=== PATIENT | male | born 2000 | race Caucasian/White ===

== ENCOUNTER 2020-06-15 19:11 | Emergency (ER) | payer OTHER ==
[2020-06-15 19:17] VITALS: BP 113/74; PULSE 98; RESP 18; TEMP 98.4
--- NOTE | 2020-06-15 19:52 | XR ---
EXAMINATION TYPE: XR chest 2V DATE OF EXAM: 06/15/2020 COMPARISON: 02/09/2018 HISTORY: Short of breath TECHNIQUE: FINDINGS: Heart and mediastinum are normal. Lungs are clear. Diaphragm is normal. Bony thorax appears normal. IMPRESSION: Normal chest. No change.
--- NOTE | 2020-06-15 20:00 | ED ---
Back Pain HPI - General Chief Complaint: Back Pain/Injury Stated Complaint: Back injury Time Seen by Provider: 06/15/20 19:19 Source: patient - History of Present Illness Initial Comments: 19-year-old male presenting today for chief complaint of back pain. Patient states he noticed that his back seemed more prominent in certain areas of the upper spine. Patient states has been painful. 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 He doesn't follow strict injury IV drug use weakness sensation deficits or radiation of the pain. Denies any loss of bowel or bladder control. Patient states he took a picture sent his dad but it looked swollen and told him to come to the ER. She states that he became very anxious about this and was experiencing dyspnea. He denies chest pain. patient has no additional complai nts. Upon arrival patient appears well nontoxic in no acute distress. - Related Data Home Medications Medication Instructions Recorded Confirmed No Known Home Medications 02/09/18 02/09/18 Allergies Allergy/AdvReac Type Severity Reaction Status Date / Time No Known Allergies Allergy Verified 06/15/20 19:17 Review of Systems ROS Statement: Those systems with pertinent positive or pertinent negative responses have been documented in the HPI. ROS Other: All systems not noted in ROS Statement are negative. Past Medical History Past Medical History: Seizure Disorder History of Any Multi-Drug Resistant Organisms: None Reported Past Surgical History: No Surgical Hx Reported Past Psychological History: No Psychological Hx Reported Smoking Status: Never smoker Past Alcohol Use History: None Reported Past Drug Use History: None Reported General Exam - General Exam Comments Initial Comments: General: The patient is awake and alert, in no distress, and does not appear acutely ill. Eye: Pupils are equal, round and reactive to light, extra-ocular movements are intact. No nystagmus. There is normal conjunctiva bilaterally. No signs of icterus. Ears, nose, mouth and throat: There are moist mucous membranes and no oral lesions. Neck: The neck is supple, there is no tenderness or JVD. Prominent C7. no pain Cardiovascular: There is a regular rate and rhythm. No murmur, rub or gallop is appreciated. Respiratory: Lungs are clear to auscultation, respirations are non-labored, breath sounds are equal. No wheezes, stridor, rales, or rhonchi. Musculoskeletal: Paraspinal tenderness of the upper thoracic spine. No lower tenderness. Patient hasno swelling, no redness. and minimal midlines pain. Whittaker bend foreward testing reveals very slight upper thoracic curvature to the right. Normal ROM, no tenderness. Strength 5/5. Sensation intact. Radial pulses equal bilaterally 2+. Neurological: A&O x 3. CN II-XII intact, There are no obvious motor or sensory deficits. Coordination appears grossly intact. Speech is normal. Skin: Skin is warm and dry and no rashes or lesions are noted. Psychiatric: Cooperative, appropriate mood & affect, normal judgment. Course Vital Signs 06/15/20 19:14 Temperature 98.4 F Pulse Rate 98 Respiratory 18 Rate Blood Pressure 113/74 O2 Sat by Pulse 100 Oximetry Medical Decision Making - Medical Decision Making Normal inspection no abnormal swelling, or changes of the spine appreciated. Patient did have photo in red lighting that appears like there was prominence however this is felt to be anatomical at c7 as well as positional/lighting. Given thoracic in nature, patient states he became anxious and had dyspnea that subsided with his tall, thin stature i obtained a chest XR to ensure no spontaneous pnuemothorax. patient CXR WNL. he appears well nontoxic and will be discharged with PCP f/u. Patient is agreeable to dsicharge. patient is accompanied by grandmother. case discussed with Dr. Maxwell who is agreeable to care plan and discharge. Disposition Clinical Impression: Back pain Disposition: HOME SELF-CARE Condition: Good Instructions (If sedation given, give patient instructions): Back Pain (ED) Additional Instructions: Please use medication as discussed. Please follow-up with family doctor in the next 2 days. Please return to emergency room if the symptoms increase or worsen or for any other concerns. Is patient prescribed a controlled substance at d/c from ED?: No Referrals: None,Stated [Primary Care Provider] - 1-2 days Time of Disposition: 20:00
== END 2020-06-15 20:11 | disposition home or self-care (01) ==
LOC: EC 19:11
DX: M54.9 Dorsalgia, unspecified (principal)
CPT/HCPCS: 71046; 99283

== ENCOUNTER 2020-11-07 10:07 | Emergency (ER) | payer OTHER ==
[2020-11-07] MEDS ORDERED: SODIUM CHLORIDE 0.9% 1,000 ML IV STA (11:06)
--- NOTE | 2020-11-07 11:11 | ED ---
General Adult HPI - General Chief complaint: Dizziness Stated complaint: Dizziness Time Seen by Provider: 11/07/20 10:32 Source: patient Mode of arrival: wheelchair Limitations: no limitations - History of Present Illness Initial comments: 20 year-old male patient presents to the emergency department for evaluation of dizziness and blurred vision. Patient states symptoms started around 0800 this morning while at work. 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 States that it has been really hot in the factory for the last several days. States he has been sweating a lot. States he drinks "a lot" of water. States he did have mild headache earlier today but it has resolved. He denies any head injury. Denies chest pain or shortness of breath. States he has had these same symptoms numerous times in the past, has never been evaluated. Patient denies any recent rash, cough, shortness of breath, chest pain, abdominal pain, nausea, vomiting, diarrhea, constipation, back pain, numbness, tingling, hematuria, dysuria, urinary urgency, urinary frequency, or any other complaints. - Related Data Home Medications Medication Instructions Recorded Confirmed No Known Home Medications 02/09/18 11/07/20 Allergies Allergy/AdvReac Type Severity Reaction Status Date / Time No Known Allergies Allergy Verified 11/07/20 11:13 Review of Systems ROS Statement: Those systems with pertinent positive or pertinent negative responses have been documented in the HPI. ROS Other: All systems not noted in ROS Statement are negative. Past Medical History Past Medical History: Seizure Disorder History of Any Multi-Drug Resistant Organisms: None Reported Past Surgical History: No Surgical Hx Reported Past Psychological History: No Psychological Hx Reported Smoking Status: Never smoker Past Alcohol Use History: None Reported Past Drug Use History: None Reported General Exam Limitations: no limitations General appearance: alert, in no apparent distress, other (This is a well- developed, well-nourished adult male patient in no acute distress. Vital signs upon presentation are temperature 97.8F, pulse 68, respirations 18, blood pressure 121/81, pulse ox 100% on room air.) Eye exam: Present: normal appearance, PERRL, EOMI. Absent: scleral icterus, conjunctival injection, periorbital swelling ENT exam: Present: normal exam, normal oropharynx, mucous membranes moist Respiratory exam: Present: normal lung sounds bilaterally. Absent: respiratory distress, wheezes, rales, rhonchi, stridor Cardiovascular Exam: Present: regular rate, normal rhythm, normal heart sounds. Absent: systolic murmur, diastolic murmur, rubs, gallop, clicks GI/Abdominal exam: Present: soft, normal bowel sounds. Absent: distended, tenderness, guarding, rebound, rigid Neurological exam: Present: alert, oriented X3, CN II-XII intact Expanded Speech: Present: fluid speech Cranial nerves: EOM's Intact: Normal, Nystagmus: Normal Motor strength exam: RUE: 5, LUE: 5, RLE: 5, LLE: 5 Psychiatric exam: Present: normal affect, normal mood Skin exam: Present: warm, dry, intact, normal color. Absent: rash Course Vital Signs 11/07/20 11/07/20 11/07/20 10:18 12:58 13:09 Temperature 97.8 F 98.0 F Pulse Rate 68 67 68 Respiratory 18 16 16 Rate Blood Pressure 121/81 128/80 121/87 O2 Sat by Pulse 100 100 99 Oximetry EKG Findings - EKG Comments: EKG Findings:: EKG obtained at 1026 shows normal sinus rhythm with an incomplete right bundle branch block. Ventricular rate is 69, ID interval 194, QRS duration 94, QTC 420, QTC 450. No evidence of ST elevation or depression. Medical Decision Making - Medical Decision Making 20-year-old male patient presents to the emergency department today for evaluation of dizziness and blurred vision. Physical examination is unremarkable. He is neurologically intact with no focal deficits. EKG shows incomplete right bundle branch block. Vital signs are within normal range. Labs reviewed and were unremarkable. I did discuss findings and results with him. He is instructed to increase fluids and to rest. He is instructed to follow-up with his primary care physician for recheck in 1-2 days. He is instructed to discuss possible heart monitoring since he has been having frequent dizzy episodes. Return parameters were discussed in detail. He verbalizes understanding and agrees with this plan. Case discussed with my attending Dr. Calles. - Lab Data Result diagrams: 11/07/20 11:25 11/07/20 11:25 Lab Results 11/07/20 11/07/20 11/07/20 Range/Units 11:25 11:25 11:25 WBC 4.3 (4.0-11.0) k/uL RBC 4.89 (4.30-5.90) m/uL Hgb 15.4 (13.0-17.5) gm/dL Hct 43.0 (39.0-53.0) % MCV 88.0 (80.0-100.0) fL MCH 31.5 (25.0-35.0) pg MCHC 35.7 (31.0-37.0) g/dL RDW 12.9 (11.5-15.5) % Plt Count 179 (150-450) k/uL MPV 7.4 Neutrophils % 54 % Lymphocytes % 34 % Monocytes % 7 % Eosinophils % 2 % Basophils % 1 % Neutrophils # 2.3 (1.3-7.7) k/uL Lymphocytes # 1.4 (1.0-4.8) k/uL Monocytes # 0.3 (0-1.0) k/uL Eosinophils # 0.1 (0-0.7) k/uL Basophils # 0.0 (0-0.2) k/uL Sodium 139 (137-145) mmol/L Potassium 4.4 (3.5-5.1) mmol/L Chloride 102 (98-107) mmol/L Carbon Dioxide 27 (22-30) mmol/L Anion Gap 10 mmol/L BUN 16 (9-20) mg/dL Creatinine 0.87 (0.66-1.25) mg/dL Est GFR (CKD-EPI)AfAm >90 (>60 ml/min/1.73 sqM) Est GFR (CKD-EPI)NonAf >90 (>60 ml/min/1.73 sqM) Glucose 77 (74-99) mg/dL Plasma Lactic Acid Kirt 0.7 (0.7-2.0) mmol/L Calcium 10.0 (8.4-10.2) mg/dL Total Bilirubin 1.6 H (0.2-1.3) mg/dL AST 35 (17-59) U/L ALT 18 (4-49) U/L Alkaline Phosphatase 76 (38-126) U/L Troponin I (0.000-0.034) ng/mL Total Protein 7.4 (6.3-8.2) g/dL Albumin 4.8 (3.5-5.0) g/dL Urine Color Urine Appearance (Clear) Urine pH (5.0-8.0) Ur Specific [place] (1.001-1.035) Urine Protein (Negative) Urine Glucose (UA) (Negative) Urine Ketones (Negative) Urine Blood (Negative) Urine Nitrite (Negative) Urine Bilirubin (Negative) Urine Urobilinogen (<2.0) mg/dL Ur Leukocyte Esterase (Negative) 11/07/20 11/07/20 Range/Units 11:25 11:30 WBC (4.0-11.0) k/uL RBC (4.30-5.90) m/uL Hgb (13.0-17.5) gm/dL Hct (39.0-53.0) % MCV (80.0-100.0) fL MCH (25.0-35.0) pg MCHC (31.0-37.0) g/dL RDW (11.5-15.5) % Plt Count (150-450) k/uL MPV Neutrophils % % Lymphocytes % % Monocytes % % Eosinophils % % Basophils % % Neutrophils # (1.3-7.7) k/uL Lymphocytes # (1.0-4.8) k/uL Monocytes # (0-1.0) k/uL Eosinophils # (0-0.7) k/uL Basophils # (0-0.2) k/uL Sodium (137-145) mmol/L Potassium (3.5-5.1) mmol/L Chloride (98-107) mmol/L Carbon Dioxide (22-30) mmol/L Anion Gap mmol/L BUN (9-20) mg/dL Creatinine (0.66-1.25) mg/dL Est GFR (CKD-EPI)AfAm (>60 ml/min/1.73 sqM) Est GFR (CKD-EPI)NonAf (>60 ml/min/1.73 sqM) Glucose (74-99) mg/dL Plasma Lactic Acid Kirt (0.7-2.0) mmol/L Calcium (8.4-10.2) mg/dL Total Bilirubin (0.2-1.3) mg/dL AST (17-59) U/L ALT (4-49) U/L Alkaline Phosphatase (38-126) U/L Troponin I <0.012 (0.000-0.034) ng/mL Total Protein (6.3-8.2) g/dL Albumin (3.5-5.0) g/dL Urine Color Yellow Urine Appearance Clear (Clear) Urine pH 6.0 (5.0-8.0) Ur Specific [place] 1.015 (1.001-1.035) Urine Protein Negative (Negative) Urine Glucose (UA) Negative (Negative) Urine Ketones Negative (Negative) Urine Blood Negative (Negative) Urine Nitrite Negative (Negative) Urine Bilirubin Negative (Negative) Urine Urobilinogen <2.0 (<2.0) mg/dL Ur Leukocyte Esterase Negative (Negative) Disposition Clinical Impression: Dizziness, Blurred vision Disposition: HOME SELF-CARE Condition: Good Instructions (If sedation given, give patient instructions): Blurred Vision (ED), Dizziness (ED) Additional Instructions: Increase fluids. Rest. Follow up with your primary care physician for recheck in 1-2 days. Discuss possible heart monitoring. Return for any new, worsening, or concerning symptoms. Is patient prescribed a controlled substance at d/c from ED?: No Referrals: None,Stated [Primary Care Provider] - 1-2 days Time of Disposition: 12:41
[2020-11-07 11:40] LABS: Appearance,Urine Clear (Clear); Bilirubin,Urine Negative (Negative); Blood,Urine Negative (Negative); Color,Urine Yellow; Glucose,Urine (UA) Negative (Negative); Ketones,Urine Negative (Negative); Leukocyte Esterase,Urine Negative (Negative); Nitrite,Urine Negative (Negative); Protein,Urine Negative (Negative); Specific Gravity,Urine 1.015 (1.001-1.035); Urobilinogen,Urine <2.0 mg/dL (<2.0)
[2020-11-07 11:46] LABS: ALT 18 U/L (4-49); AST 35 U/L (17-59); African American GFR (CKD) >90 (>60 ml/min/1.73 sqM); Albumin 4.8 g/dL (3.5-5.0); Alkaline Phosphatase 76 U/L (38-126); Anion Gap 10 mmol/L; Blood Urea Nitrogen 16 mg/dL (9-20); Carbon Dioxide 27 mmol/L (22-30); Chloride 102 mmol/L (98-107); Glucose 77 mg/dL (74-99); Non-African American GFR(CKD) >90 (>60 ml/min/1.73 sqM); Potassium 4.4 mmol/L (3.5-5.1); Sodium 139 mmol/L (137-145); Total Bilirubin 1.6 mg/dL (0.2-1.3); Total Protein 7.4 g/dL (6.3-8.2)
[2020-11-07 11:51] LABS: Basophils % (A) 1 %; Eosinophils # (A) 0.1 k/uL (0-0.7); Eosinophils % (A) 2 %; HGB 15.4 gm/dL (13.0-17.5); Lymphocytes # (A) 1.4 k/uL (1.0-4.8); Lymphocytes % (A) 34 %; MCH 31.5 pg (25.0-35.0); MCHC 35.7 g/dL (31.0-37.0); Mean Platelet Volume 7.4; Monocytes # (A) 0.3 k/uL (0-1.0); Monocytes % (A) 7 %; Neutrophils # (A) 2.3 k/uL (1.3-7.7); Neutrophils % (A) 54 %; Platelet Count 179 k/uL (150-450); RBC 4.89 m/uL (4.30-5.90); RDW 12.9 % (11.5-15.5); WBC 4.3 k/uL (4.0-11.0)
[2020-11-07 12:59] VITALS: RESP 16
[2020-11-07 13:09] VITALS: BP 121/87; PULSE 68; TEMP 98
== END 2020-11-07 13:09 | disposition home or self-care (01) ==
LOC: EC 10:07
DX: R42 Dizziness and giddiness (principal); H53.8 Other visual disturbances
CPT/HCPCS: 36415; 80053; 81003; 83605; 84484; 85025; 93005; 96360; 96361; 99284

== ENCOUNTER 2020-11-13 22:21 | Emergency (ER) | payer OTHER ==
[2020-11-13] MEDS ORDERED: ACETAMINOPHEN TAB 500 MG TAB PO STA (23:32)
[2020-11-14] MEDS ORDERED: IBUPROFEN 600 MG TAB PO STA (00:24)
[2020-11-14] MEDS ORDERED: guaiFENesin-DM 600/30MG 1 EACH TAB.ER.12H PO STA (00:24)
--- NOTE | 2020-11-14 00:36 | XR ---
EXAMINATION TYPE: XR chest 1V DATE OF EXAM: 11/14/2020 COMPARISON: 06/15/2020 HISTORY: Cough. Short of breath. TECHNIQUE: Single view FINDINGS: Heart and mediastinum are normal. Lungs are clear. Diaphragm is normal. Bony thorax is inta ct. IMPRESSION: Normal chest. No change.
[2020-11-14 00:53] VITALS: BP 107/63; PULSE 80; RESP 16; TEMP 98.2
--- NOTE | 2020-11-14 01:16 | ED ---
URI HPI - General Chief Complaint: Upper Respiratory Infection Stated Complaint: cough, fever Time Seen by Provider: 11/14/20 00:06 Source: patient, family Mode of arrival: wheelchair Limitations: no limitations - History of Present Illness Initial Comments: 20-year-old male patient presents to the emergency department today for evaluation of cough, congestion, sore throat, body aches, fever, chills. Patient states symptoms started about 24 hours ago. Denies taking any medication for his symptoms. Does admit to smoking cigarettes. Has not had COV ID-19. Mother is sick with similar symptoms. Patient denies any recent rash, shortness of breath, chest pain, abdominal pain, nausea, vomiting, diarrhea, constipation, back pain, numbness, tingling, dizziness, weakness, hematuria, dysuria, urinary urgency, urinary frequency, headache, visual changes, or any other complaints. - Related Data Previous Rx's Medication Instructions Recorded Ibuprofen [Motrin] 600 mg PO Q8HR PRN #30 tab 11/14/20 guaiFENesin-DM 600/30MG [Mucinex 2 each PO Q12HR PRN #20 tab.er.12h 11/14/20 Dm] Allergies Allergy/AdvReac Type Severity Reaction Status Date / Time No Known Allergies Allergy Verified 11/13/20 23:14 Review of Systems ROS Statement: Those systems with pertinent positive or pertinent negative responses have been documented in the HPI. ROS Other: All systems not noted in ROS Statement are negative. Past Medical History Past Medical History: Seizure Disorder History of Any Multi-Drug Resistant Organisms: None Reported Past Surgical History: No Surgical Hx Reported Past Psychological History: No Psychological Hx Reported Smoking Status: Never smoker Past Alcohol Use History: None Reported Past Drug Use History: None Reported General Exam Limitations: no limitations General appearance: alert, in no apparent distress, other (This is a well- developed, well-nourished adult male patient in no acute distress. Vital signs upon presentation are temperature 100.7F, pulse 83, respirations 18, blood pressure 132/81, pulse ox 100% on room air.) ENT exam: Present: normal exam, normal oropharynx, mucous membranes moist Respiratory exam: Present: normal lung sounds bilaterally. Absent: respiratory distress, wheezes, rales, rhonchi, stridor Cardiovascular Exam: Present: regular rate, normal rhythm, normal heart sounds. Absent: systolic murmur, diastolic murmur, rubs, gallop, clicks GI/Abdominal exam: Present: soft, normal bowel sounds. Absent: distended, tenderness, guarding, rebound, rigid Neurological exam: Present: alert, oriented X3, CN II-XII intact Psychiatric exam: Present: normal affect, normal mood Skin exam: Present: warm, dry, intact, normal color. Absent: rash Course Vital Signs 11/13/20 11/14/20 11/14/20 23:11 00:52 01:33 Temperature 100.7 F H 98.2 F Pulse Rate 83 80 Respiratory 18 16 16 Rate Blood Pressure 132/81 107/63 O2 Sat by Pulse 100 97 Oximetry Medical Decision Making - Medical Decision Making 20-year-old male patient presents to the emergency department today for evaluation of upper respiratory symptoms and fever. Physical examination did reveal clear equal lung sounds. There is some mild pharyngeal erythema. No evidence for otitis media. Chest x-ray was negative. COVID-19 test is negative. He will be discharged with Mucinex and ibuprofen. Instructed to rest and increase fluids. Instructed to follow-up the primary care physician for recheck in 1-2 days. Return parameters were discussed in detail. Patient verbalizes understanding and agrees with this plan. My attending is Dr. Wheat. - Lab Data Lab Results 11/13/20 Range/Units 23:33 Coronavirus (PCR) Not Detected (Not Detectd) Disposition Clinical Impression: Viral upper respiratory infection Disposition: HOME SELF-CARE Condition: Good Instructions (If sedation given, give patient instructions): Upper Respiratory Infection (ED) Additional Instructions: Rest. Increase fluids. Alternate Tylenol and Motrin for pain and fever control. Take medications as directed for symptom relief. Return to the emergency department for any new, worsening, or concerning symptoms. Prescriptions: Ibuprofen [Motrin] 600 mg PO Q8HR PRN #30 tab PRN Reason: Pain guaiFENesin-DM 600/30MG [Mucinex Dm] 2 each PO Q12HR PRN #20 tab.er.12h PRN Reason: Cough Is patient prescribed a controlled substance at d/c from ED?: No Referrals: Constantine Orourke MD [Primary Care Provider] - 1-2 days Time of Disposition: :16
== END 2020-11-14 01:26 | disposition home or self-care (01) ==
LOC: EC 22:21
DX: J06.9 Acute upper respiratory infection, unspecified (principal); F17.210 Nicotine dependence, cigarettes, uncomplicated; Z20.822 Contact with and (suspected) exposure to COVID-19
CPT/HCPCS: 71045; 87635; 99283

== ENCOUNTER → 2020-12-12 | Outpatient (CLI) | payer OTHER ==
--- NOTE | 2020-12-16 10:53 | MR ---
EXAMINATION TYPE: MR brain wo/w con DATE OF EXAM: 12/12/2020 COMPARISON: CT 02/09/2018 HISTORY: 20-year-old male R56.9, R55. Seizure, syncope. TECHNIQUE: Multiplanar, multisequence images of the brain and brainstem were acquired before and aft er administration of 5.5 mL IV Gadavist. Diffusion weighted imaging is performed. The initial injec tion did not reveal any enhancing vasculature. The patient was called back on 12/14/2020 and reinjecte d with 5.5 mL IV Gadavist. FINDINGS: No evidence for acute infarction, hemorrhage, mass, mass effect, midline shift, herniation, effacemen t of basal cisterns, or extra-axial fluid collection. The ventricles and sulci are age-appropriate. Major intracranial flow voids are intact. T2/FLAIR weighted sequences show no white matter signal abnormality. No ricketts matter heterotopia. No hippocampal volume loss. Midline structures demonstrate normal morphology. The craniocervical junction is normal. Post contrast images demonstrate no evidence of pathologic enhancement. Dural venous sinuses are pat ent. Scattered mild mucosal thickening ethmoid air cells and right greater than left maxillary sinuses. Gl obes are intact. IMPRESSION: Mild chronic ethmoid and maxillary sinus disease. Otherwise, unremarkable MRI brain. No enhancing les ion seen.
== END | disposition home or self-care (01) ==
LOC: RADMRIMAIN 12:00
PROVIDERS: ATTEND Family Medicine
DX: R56.9 Unspecified convulsions (principal); R55 Syncope and collapse
CPT/HCPCS: 70553; A9585